=== PATIENT | female | born 1950 | race Two or more races ===

== ENCOUNTER 2023-04-06 05:10 | Day surgery (SDC) | payer OTHER ==
[~2023-04-06 05:10] MED LIST: HORIZANT300 MG PO; LIPITOR20 MG PO
[2023-04-06] MEDS ORDERED: LEVOFLOXACIN250 MG PO (09:33)
[2023-04-06] MEDS ORDERED: TRAM1TAB98 PO (09:33)
== END 2023-04-06 11:10 | disposition home or self-care (01) ==
LOC: CIR.AMB 05:10
PROVIDERS: ATTEND Obstetrics & Gynecology Gynecology
DX: N32.81 Overactive bladder (principal); N39.41 Urge incontinence; R35.0 Frequency of micturition; I10 Essential (primary) hypertension; Z20.822 Contact with and (suspected) exposure to COVID-19
CPT/HCPCS: 64581; 64590; 95972; C1767; C1778

== ENCOUNTER 2024-04-18 08:20 | Day surgery (SDC) | payer OTHER ==
[~2024-04-18 08:20] MED LIST changes: +LEVOFLOXACIN250 MG PO; +NEUROTIN; +TRAM1TAB98 PO
[2024-04-18] MEDS ORDERED: CEFAZOLIN SODIUM 1,000 MG VIAL ONE (13:06)
[2024-04-18] MEDS ORDERED: CHLORHEXIDINE GLUCONATE 120 ML BOTTLE TOP ONE (13:18)
[2024-04-18] MEDS ORDERED: LIDOCAINE HCL 1%/EPINEPHRINE 20ML VIAL IJ ONE (13:20)
[2024-04-18] MEDS ORDERED: TRAM1TAB98 PO (14:41)
[2024-04-18] MEDS ORDERED: MACROBID 100 M100 MG PO (14:41)
== END 2024-04-18 16:35 | disposition home or self-care (01) ==
LOC: CIR.AMB 08:20
PROVIDERS: ATTEND Obstetrics & Gynecology Gynecology
DX: N39.3 Stress incontinence (female) (male) (principal); Z88.5 Allergy status to narcotic agent; Z88.2 Allergy status to sulfonamides; R00.1 Bradycardia, unspecified
CPT/HCPCS: 57288; C1771